=== PATIENT | male | born 1985 | race Caucasian/White ===

== ENCOUNTER 2017-07-01 15:48 | Emergency (ER) | payer MEDICAID ==
[~2017-07-01] VITALS: Ht 170.2 cm; Wt 81.3 kg
[~2017-07-01 15:48] MED LIST: HYDR-3240 PO
[2017-07-01 15:50] VITALS: BP 136/80
== END 2017-07-01 16:24 | disposition home or self-care (01) ==
LOC: ED 16:05
DX: Z76.0 Encounter for issue of repeat prescription (principal); F32.0 Major depressive disorder, single episode, mild; F41.9 Anxiety disorder, unspecified; F17.200 Nicotine dependence, unspecified, uncomplicated; F15.10 Other stimulant abuse, uncomplicated; F11.10 Opioid abuse, uncomplicated
CPT/HCPCS: 99283